=== PATIENT | female | born 1945 | race Caucasian/White ===

== ENCOUNTER 2024-10-08 05:54 | Emergency (ER) | payer MEDICARE, SELFPAY ==
[2024-10-08] VITALS (11 sets, daily range): BP systolic 138–176; BP diastolic 74–136; PULSE 68–86; RESP 16–20; TEMP 36.6; O2SAT 91–99
--- NOTE | 2024-10-08 06:03 | W.ED.GENAD ---
Discharge Plan Discharge Details Chief Complaint: GenMedical Clinical Impression: Medication withdrawal Primary Care Provider: Mist[facility] ED Provider: Pedrito Bryson Kilbourne Hans and New Rx's Prescriptions: No Action meloxicam 15 MG tablet 15 mg PO DAILY Patient Comments: unknown dose levothyroxine 25 MCG tablet 150 mcg PO DAILY estriol micronized (bulk) 100 GM powder 100 mg PO DAILY lisinopril 5 MG tablet 10 mg PO DAILY pravastatin 80 mg tablet 80 mg PO DAILY nortriptyline 25 mg capsule 25 mg PO DAILY asprin 325 mg PO DAILY gabapentin 600 mg tablet 600 mg PO TID HPI General Mode of arrival: wheelchair. Date/Time Provider Initiated Documentation: 10/08/24 06:02. Limitations to Documentation: no limitations. Information obtained by: patient, family and RN notes reviewed. HPI Narrative: Patient presenting to ED with nausea and diarrhea but no vomiting or abdominal pain. She is having chills, hot flashes, sweats, generalized aches and pains. She has not had an objective fever. She is having abnormal skin sensation. She has not been able to take her nortriptyline since the when she came up here from [place] and forgot the medication at home. Symptoms began a day or 2 after this and have intensified. She denies having any chest pain or shortness of breath. She has no neurologic change. She has been taking her other medications. Related Data Home Medications ?Medication ?Instructions ?Recorded ?Confirmed estriol micronized (bulk) 100 % 100 mg PO DAILY 09/02/17 10/08/24 powder levothyroxine 25 mcg tablet 150 mcg PO DAILY 09/02/17 10/08/24 lisinopril 5 mg tablet 10 mg PO DAILY 09/02/17 10/08/24 meloxicam 15 mg tablet 15 mg PO DAILY 09/02/17 10/08/24 asprin 325 mg PO DAILY 10/08/24 10/08/24 gabapentin 600 mg tablet 600 mg PO TID 10/08/24 10/08/24 nortriptyline 25 mg capsule 25 mg PO DAILY 10/08/24 10/08/24 pravastatin 80 mg tablet 80 mg PO DAILY 10/08/24 10/08/24 Allergies Allergy/AdvReac Type Severity Reaction Status Date / Time cefuroxime (From Ceftin) Allergy Hives Verified 10/08/24 06:03 pregabalin (From Lyrica) Allergy Dizziness/L Verified 10/08/24 06:03 ightheade Review of Systems Narrative: Per HPI Exam Narrative Exam Narrative: Const: WDWN elderly female in NAD. VS per triage. HEENT: NC/AT. Normal facial exam. Neck: Supple. Trachea midline. Lungs: Normal respiratory effort. Lungs are clear. Cor: RRR without murmur. Good radial pulses. GI: Soft/ND/NT. Neuro: A+O x 3. Normal speech, mentation, gait. Cranial nerves II - XII grossly intact. No gross motor or sensory deficit. Ext: No C/C/E. Medical Decision Making Patient presenting to ED with nausea, diarrhea, chills and hot flashes, abnormal skin sensation and generalized body pain which does seem to be consistent with the abrupt withdrawal of her nortriptyline. Her exam is otherwise reassuring. Abdomen is benign. She had no time has actually had a fever. She has no respiratory symptoms. Will place an IV to check basic labs and give ondansetron. Once nausea improved we will give p.o. fluids as well as her dose of nortriptyline. Patient's laboratory studies unremarkable other than an anemia. She is feeling better after Zofran. Will give Tylenol for headache and nortriptyline 50 mg as she states she takes 2 tablets a day. Once feeling better we will plan discharge home with another 50 mg to take tomorrow at which point she is returning to [place] and will be able to resume her regular dosing. Lab Data Lab results reviewed: Yes I reviewed the patient's lab results. Lab results narrative: see [facility] All Active Problems (Updated 10/08/24 @ 07:31 by Pedrito Bryson MD) Medication withdrawal (Acute) Medical History Hyperlipidemia HTN (hypertension) Hypothyroid Social History Smoking/Tobacco Use Status: Never Smoking risk assessment performed?: Yes Alcohol Intake: never Substance use type: does not use Housing: house Do you feel safe in your relationship?: Yes
[2024-10-08] MEDS: Ondansetron 4 MG/2 ML VIAL IVP ×2 (06:28→10:05)
[2024-10-08 06:41] LABS: Abs Immature Grans 0.03 10^3/uL (0.0-0.06); Absolute Basophil Count 0.06 10^3/uL (0.0-0.2); Absolute Eosinophil Count 0.13 10^3/uL (0.0-0.7); Absolute Lymphocyte Count 1.68 10^3/uL (1.2-3.4); Absolute Monocyte Count 0.52 10^3/uL (0.1-0.8); Absolute Neutrophil Count 6.21 10^3/uL (1.2-6.7); Basophils % 0.7 %; Eosinophils % 1.5 %; HCT 31.8 % (36.0-46.0); HGB 9.7 g/dL (11.2-15.7); Immature Grans % 0.3 %; Lymphocytes % 19.5 %; MCH 23.2 pg (27.0-33.0); MCHC 30.5 % (32.0-36.0); MCV 76 fL (80-95); MPV 8.9 fL (8.0-11.0); Platelet Count 429 10^3/uL (130-400); RBC 4.18 10^6/uL (3.93-5.22); RDW 18.3 % (11.7-14.6); RDW-SD 50.6 fL; WBC 8.63 10^3/uL (4.4-10.8)
[2024-10-08 07:03] LABS: ALT 20 U/L (14-59); AST 24 U/L (15-37); Albumin 3.8 g/dL (3.4-5.0); Alkaline Phosphatase 121 U/L (46-116); Anion Gap 8.9 mmol/L (3-11); BUN 12 mg/dL (7-18); Bilirubin, Total 0.36 mg/dL (0.2-1.0); CO2 29.1 mmol/L (21.0-32.0); Chloride 102 mmol/L (98-107); Estimated GFR 57.31 (mL/min/1.73m2); Glucose 119 mg/dL (74-106); Lipase 34 U/L (<78); Potassium 4.1 mmol/L (3.5-5.1); Sodium 140 mmol/L (136-145); Total Protein 7.3 g/dL (6.4-8.2)
[2024-10-08 07:09] LABS: Calcium 9.7 mg/dL (8.5-10.1)
[2024-10-08] MEDS: Acetaminophen 325 MG TAB 650 MG PO (07:49)
[2024-10-08] MEDS: diphenhydrAMINE 50 MG/ML VIAL 25 MG IVP (10:05)
[2024-10-08] MEDS: Prochlorperazine 10 MG/2 ML VIAL IVP (10:05)
--- NOTE | 2024-10-08 10:07 | W.EDPROG ---
Date of service: 10/08/24 Time of Service: 10:10 Medical Decision Making Patient was signed out to me by my colleague Dr. Bryson. Please refer to his HPI, physical exam, assessment and plan. At time of signout we are pending reassessment. Laboratory workup had returned normal. Dr. Bryson's assessment she demonstrated no evidence of acute process indicative of need for emergent CT scan. On personal reassessment after medications patient is feeling much better. Headache is notably improved. She is tolerated p.o. trial. Repeat exam shows no neurologic deficits. No nuchal rigidity. The patient denies any headache red flags of worst headache of life, thunderclap headache, severe neck pain or stiffness, fever, chills, concerning family history of polycystic kidney disease, Marfan syndrome, Maury-Danlos syndrome, abdominal aortic aneurysm, aortic dissection, or intracranial aneurysm. Patient feels well and is requesting discharge. At this time I do not see an indication for emergent CT imaging. Patient will be given a dose of nortriptyline for home use. She was given her morning dose of gabapentin. Patient will be returning home shortly. Discussed red flags for which to return. We also did get case management involved as family requested evaluation by case management for discussion of potential outpatient resources if the patient does move up here in the next year.. I have extensively reviewed the treatment plan and discharge instructions with the patient and their family. I have addressed all patient concerns at this time. The patient and family was made aware of what symptoms to monitor for that would warrant a return to the emergency department. Discussed the plan with the patient and family, they demonstrate verbal understanding and agreement with our assessment and plan at this time. The documentation in this chart was dictated using [employer] dictation software. Please excuse any dictation errors. Quality:SDOH Health Related Social Needs: No Data to Display Discharge Plan Disposition Patient Disposition: Home Condition: Good Discharge Details Clinical Impression: Medication withdrawal Primary Care Provider: Misti,Local ED Provider: Dennis Barrera Home Meds and New Rx's Prescriptions: No Action meloxicam 15 MG tablet 15 mg PO DAILY Patient Comments: unknown dose levothyroxine 25 MCG tablet 150 mcg PO DAILY estriol micronized (bulk) 100 GM powder 100 mg PO DAILY lisinopril 5 MG tablet 10 mg PO DAILY pravastatin 80 mg tablet 80 mg PO DAILY nortriptyline 25 mg capsule 25 mg PO DAILY asprin 325 mg PO DAILY gabapentin 600 mg tablet 600 mg PO TID Discharge Instructions Additional Instructions: At this time your workup has returned stable. Please continue to take your home medications as prescribed. We have sent you home with a dose of nortriptyline for home use. If you notice any worsening of your symptoms, or any new symptoms such as vomiting, diarrhea, fever, chills, shortness of breath, chest pain, numbness, weakness, or fainting , please return immediately to the emergency department for reevaluation. Please follow up with your primary care provider as soon as possible for reassessment and reevaluation. As always, it was a pleasure participating in your medical care today. Discharge Data Discharge Date/Time-TO BE ENTERED AT DEPARTURE: 10/08/24 11:12
--- NOTE | 2024-10-08 11:20 | PDOC.CMPRO ---
Date of service: 10/08/24 Time of Service: 11:21 Care Management Progress Note Progress Note Text Progress Note Text: CM met with Maddy at the request of her daughter, Gabby, who is her DPOA. Gabby expressed concern about her mother living alone; Maddy lives in [place], and Gabby is considering relocating her to this area, possibly in the summer. Gabby inquired about the process of relocating, including securing housing (senior housing vs assisted living) and coordinating local resources. CM sent a referral to [facility] in order to support Maddy and Gabby with a potential relocation this summer. SDOH(Care Management) Screening Will the Patient Participate in the Screening?: Yes Do you worry about having a steady place to live?: no In the past 12 months, have you had to go without electric, gas, oil or water in your home?: no Have you or anyone in your house had to go without enough food to eat?: no Has lack of transportation kept you from medical appointments or from doing things needed for daily living?: no Has anyone in your support network made you feel unsafe for any reason?: no
--- NOTE | 2024-10-08 18:29 | NUR.NOTE ---
Nursing Note: Received call from patients daughter Gabby that patient is still not feeling well enough to fly home to [place] tomorrow and requesting 2 more tablets be dispensed to get through to new flight time. CONNOR Hassan gave verbal orders for Nortriptyline 25mg tablets x 4 more tablets be called into [facility]. Verbal orders left on [facility] in [place] prescription line as the pharmacy is no longer open. Daughter aware.
--- NOTE | 2024-10-09 10:19 | NUR.NOTE ---
[facility] called for clarification of the directions for the Nortriptyline. Per Dr. Nation they were told to dispense 4 tablets and to take 1 tablet per day. Nursing Note:
== END 2024-10-08 11:12 | disposition home or self-care (01) ==
PROVIDERS: Emergency Medicine; Emergency Provider Student in an Organized Health Care Education/Training Program
DX: F19.230 Other psychoactive substance dependence with withdrawal, uncomplicated (principal); I10 Essential (primary) hypertension; E78.5 Hyperlipidemia, unspecified; E03.9 Hypothyroidism, unspecified; Z79.82 Long term (current) use of aspirin
CPT/HCPCS: 00123; 36415; 80053; 83690; 96374; 96375; 96376; 99284; 85025; J0780; J1200; J2405